=== PATIENT | male | born 1995 | race Caucasian/White ===

== ENCOUNTER 2018-09-14 10:33 | Emergency (ER) | payer OTHER ==
[2018-09-14 10:38] VITALS: BP 132/68
[2018-09-14] MEDS ORDERED: CIPROFLOXACIN HCL/DEXAMETH OTIC DROP 7.5 ML AS ONE (10:45)
--- NOTE | 2018-09-14 10:46 | ER Document Report ---
Addendum entered and electronically signed by SHARONA BALDERAS NP 09/14/18 10:48: Discharge - Discharge Clinical Impression: Otitis externa Qualifiers: Otitis externa type: unspecified type Chronicity: acute Laterality: right Qualified Code(s): H60.501 - Unspecified acute noninfective otitis externa, right ear Condition: Stable Disposition: HOME, SELF-CARE Instructions: Otitis Externa ([facility]) Additional Instructions: Your physical examination is most consistent with otitis externa which is an outer ear infection please use the Ciprodex drops, apply 4 drops into the right ear twice daily for 7 days. Try not to get any water in your ear. You may also take Tylenol or ibuprofen for any pain or discomfort. Return to the emergency department with any new or worsening symptoms. Original Note: HPI - HPI Time Seen by Provider: 09/14/18 10:41 Pain Level: 3 Notes: Patient is an otherwise healthy 22-year-old male presented to the emergency department with chief complaints of pain to the right ear after swimming yesterday. Patient reports pain with movement. He denies any fevers, nausea, vomiting. - CONSTITUTIONAL Constitutional: DENIES: Fever, Chills - EENT EENT: REPORTS: Ear Pain - R - REPRODUCTIVE Reproductive: DENIES: : Past Medical History - General Information source: Patient - Social History Smoking Status: Never Smoker Chew tobacco use (# tins/day): No Frequency of alcohol use: Occasional Drug Abuse: None Family History: None Patient has suicidal ideation: No Patient has homicidal ideation: No Renal/ Medical History: Denies: Hx Peritoneal Dialysis Past Surgical History: Reports: Hx Oral Surgery - wisdom - Immunizations Hx Diphtheria, Pertussis, Tetanus Vaccination: Yes Vertical Provider Document - CONSTITUTIONAL Notes: PHYSICAL EXAMINATION: GENERAL: Well-appearing, well-nourished and in no acute distress. HEAD: Atraumatic, normocephalic. EYES: Pupils equal round extraocular movements intact, conjunctiva are normal. ENT: Nares patent, swelling and erythema noted to right ear canal, TM appears normal, left TM and canal appear normal. NECK: Normal range of motion LUNGS: No respiratory distress Musculoskeletal: Normal range of motion NEUROLOGICAL: Normal speech, normal gait. PSYCH: Normal mood, normal affect. SKIN: Warm, Dry, normal turgor, no rashes or lesions noted. - INFECTION CONTROL TRAVEL OUTSIDE OF THE [place] IN LAST 30 DAYS: No Course - Re-evaluation Re-evalutation: 09/14/18 10:47 Examination consistent with acute otitis externa. Patient will be placed on Ciprodex drops that will be dispensed from the emergency department. - Vital Signs Vital signs: Temp Pulse Resp BP Pulse Ox 98.3 F 63 12 132/68 H 98 09/14/18 10:37 09/14/18 10:37 09/14/18 10:37 09/14/18 10:37 09/14/18 10:37 Discharge - Discharge Clinical Impression: Otitis externa Qualifiers: Otitis externa type: unspecified type Chronicity: acute Laterality: right Quali fied Code(s): H60.501 - Unspecified acute noninfective otitis externa, right ear Condition: Stable Disposition: HOME, SELF-CARE Instructions: Otitis Externa ([facility]) Additional Instructions: Your physical examination is most consistent with otitis externa which is been outer ear infection please use the Ciprodex drops, apply 4 drops into the right ear twice daily for 7 days. Try not to get any water in your ear you may also take Tylenol or ibuprofen for any pain or discomfort. Return to the emergency department with any new or worsening symptoms.
== END 2018-09-14 10:54 | disposition home or self-care (01) ==
LOC: ER 10:33
DX: H60.501 Unspecified acute noninfective otitis externa, right ear (principal)
CPT/HCPCS: 99282; J3490